=== PATIENT | female | born 1950 | race Caucasian/White ===

== ENCOUNTER 2022-06-07 08:31 | Emergency (ER) | payer MEDICARE, SELFPAY ==
[2022-06-07 08:32] VITALS: BP 172/102; PULSE 69; RESP 16; TEMP 36.6; O2SAT 97; BMI 21.2
--- NOTE | 2022-06-07 08:52 | EDS_ITS ---
HPI HPI - GI History of Present Illness Chief Complaint: Abd Pain Informant: patient and family Abdominal Pain/Flank Pain Onset: Weeks Context: Gradual Onset Timing: Intermittent Quality: Aching Location: Diffuse Current Severity: Mild Maximum Severity: Severe Worsened by: Food (Usually a while after eating, may be hour or 2, when it gets to the lower intestine) Relieved by: Antacids (sometimes by Mylanta) Nausea/Vomiting/Emesis GI Symptom: Positive for Nausea; Negative for Vomiting Diarrhea/Melena/Hematochezia GI Symptom: Negative for Diarrhea, Melena or Hematochezia Associated Symptoms Associated Symptoms: Negative for Dysuria, Frequency, Hematuria or Urgency Narrative Narrative: Patient presenting for weeks of intermittent abdominal discomfort that mainly occurs after meals. She is drinking fluids without difficulty. She has been se en at [facility] for this twice in the past 2 weeks, the initial time she had a CT of her abdomen/pelvis that showed a dilated right renal collecting system and ureter without any evidence for obstruction and nothing else acute, and the second time she had a CT of her brain without any acute abnormality. I do not have access to the other testing that she had FNA. She was referred to GI to follow-up with and no other specialists. She had a scope scheduled for [facility] however the weather was so bad that it was canceled and has not yet been rescheduled. She is still feeling poorly. She is taking no other daily medications ever prescribed in those visits, just taking some Mylanta every now and then which does help some, and although the pain is not too bad right now, she states I am just so sick and states instead of the other hospital now she wanted to try a new hospital so they present here. Family states she has a lot of anxiety. She has had no vomiting. No bright red blood per rectum or melena. Remote appendectomy no other abdominal surgeries. She states since the ER visit she had the uterus checked out and it is okay. PFSH PFSH Medical History no medical history no medical history Home Medications dicyclomine 10 mg capsule 20 mg PO Q6H PRN PRN abdominal discomfort #30 CAPSULES 06/07/22 [Rx Last Taken Unknown] ondansetron 4 mg disintegrating tablet 8 mg PO Q8H PRN PRN Nausea #20 tabs 06/07/22 [Rx Last Taken Unknown] pantoprazole 40 mg tablet,delayed release 40 mg PO DAILY #30 tabs 06/07/22 [Rx Last Taken Unknown] temazepam 15 mg capsule (Restoril) 15 mg PO QHS PRN sleep #5 caps 06/07/22 [Rx Last Taken Unknown] Allergy/AdvReac Type Severity Reaction Status Date / Time No Known Allergies Allergy Verified 06/07/22 08:33 Surgical History (Updated 06/07/22 @ 08:[address] Tian Zhu MD) Appendicitis Social History (Updated 06/07/22 @ 08:[address] Tian Zhu MD) Smoking Status: Unknown if ever smoked alcohol intake: never ROS ROS ED Constitutional Constitutional ED: Denies chills or fever(s) Eyes Eyes: Denies change in vision or diplopia ENT ENT ED: Denies rhinorrhea or sore throat Cardiovascular Cardiovascular: Denies chest pain or palpitations Respiratory/Chest Respiratory/Chest: Denies cough or dyspnea Gastrointestinal Gastrointestinal: Reports abdominal pain and nausea; Denies diarrhea or vomiting Genitourinary Genitourinary ED: Denies dysuria or hematuria Musculoskeletal Musculoskeletal: Denies back pain or neck pain Integumentary Denies abscess or rash Neurologic Neurologic: Denies headache(s), paresthesias or weakness Psychiatric Psychiatric: Denies anxiety or suicidal thoughts EXAM Physical Exam Const Vital Signs: 06/07/22 08:32 Temperature 97.8 F Temperature Source Temporal Pulse Rate 69 Respiratory Rate 16 Blood Pressure 172/102 H Blood Pressure Mean 125 Pulse Ox 97 Oxygen Delivery Method Room Air Positive well nourished and well developed General Appearance ED: well developed and NAD HEENT Reports moist mucous membranes normocephalic and atraumatic Eyes PERRL and EOMs intact bilaterally Neck full ROM and supple Resp normal respiratory effort and clear to auscultation bilaterally Cardio regular rate, regular rhythm and no murmurs GI non-distended GI Narrative: Mild epigastric tenderness, otherwise benign abdomen. No pulsatile mass. Auscultation: normoactive bowel sounds Palpation: soft Back/Spine no CVA tenderness General Back: other FROM Extremity normal to inspection General Extremety ED: Negative for edema, pulses abnormal or tenderness General Extremity: Negative for edema or pulses abnormal Neuro oriented x3, CN's II-XII intact bilaterally and no sensory deficits noted Sensorium / Orientation: awake and alert Motor Exam: strength 5/5 throughout Skin no rashes or lesions noted and no wounds MDM MDM MDM Narrative Medical decision making narrative: Labs are all normal except for very slightly low potassium, she is taking oral fluids/foods I do not think we necessarily need to focus on replacing that right now. While waiting for these labs she was given oral dicyclomine and Reglan. She did have improvement of her symptoms. However, she and the family are concerned that she is extremely anxious about all of this, and having trouble sleeping as a result, and she is asking for a sleeping pill. I will prescribe her a PPI, Zofran, dicyclomine, and Restoril to try for a few nights. They are comfortable with that plan and understand that follow-up with GI as previously scheduled is advised. Lab Data Attestation: I reviewed the patient's lab results. Labs: Laboratory Results - last 24 hr 06/07/22 06/07/22 06/07/22 09:20 09:20 09:50 WBC 6.6 RBC 4.89 Hgb 13.5 Hct 38.6 MCV 78.9 L MCH 27.6 MCHC 35.0 RDW Std Deviation 37.1 RDW Coeff of Susan 13.0 Plt Count 305 MPV 8.8 Immature Gran % (Auto) 0.200 Neut % (Auto) 54.1 Lymph % (Auto) 30.9 [place] % (Auto) 12.5 H Eos % (Auto) 1.2 Baso % (Auto) 1.1 H Absolute Neuts (auto) 3.6 Absolute Lymphs (auto) 2.05 Nucleated RBC % 0 Sodium 130 L Potassium 3.4 L Chloride 95 L Carbon Dioxide 28.0 Anion Gap 7 BUN 10 Creatinine 0.73 Estim Creat Clear Calc 42.68 Est GFR (MDRD) Af Amer 102 Est GFR (MDRD) Non-Af 84 BUN/Creatinine Ratio 13.8 Glucose 116 H Calcium 9.0 Total Bilirubin 0.40 AST 12 L ALT 28 Alkaline Phosphatase 58 Total Protein 7.1 Albumin 3.8 Globulin 3.3 Albumin/Globulin Ratio 1.2 Lipase 138 Urine Color Straw Urine Clarity Clear Urine pH 8.0 Ur Specific [place] 1.010 Urine Protein Negative Urine Glucose (UA) Normal Urine Ketones Negative Urine Occult Blood Negative Urine Nitrite Negative Urine Bilirubin Negative Urine Urobilinogen Normal Ur Leukocyte Esterase Negative Urine RBC 0 SEEN Urine WBC 0 SEEN Ur Squamous Epith Cells 0 SEEN Urine Bacteria 0 SEEN Urine Mucus 0 SEEN Discharge Plan Triage Chief Complaint: Abd Pain ED Provider: Tian Zhu Dx/Rx/DC Orders Clinical Impression: Diffuse abdominal pain, Anxiety, Insomnia Instructions: Abdominal Pain, Anxiety Disorders Tx Prescriptions: New pantoprazole 40 mg tablet,delayed release (DR/EC) 40 mg PO DAILY Qty: 30 0RF temazepam [Restoril] 15 mg capsule 15 mg PO QHS PRN (Reason: sleep) Qty: 5 0RF dicyclomine 10 MG capsule 20 mg PO Q6H PRN PRN (Reason: abdominal discomfort) Qty: 30 0RF ondansetron [ondansetron] 4 MG tablet 8 mg PO Q8H PRN PRN (Reason: Nausea) Qty: 20 0RF Primary Care Provider: Anne Marie Mejía NP Referrals: Alvaro Chen MD [Non-Staff] - As soon as possible NOT,DEFINED [Non-Staff] - Disposition Disposition: Home, Self Care
[2022-06-07 09:26] LABS: Absolute Lymphocyte Count 2.05 X10^3/uL (0.83-4.51); Absolute Neutrophil Count 3.6 X10^3/uL (2.0-7.7); Basophil# 0.07 X10^3/uL; Basophil% 1.1 % (0-1); Eosinophil# 0.08 X10^3/uL; Eosinophils% 1.2 % (0-5); Hematocrit 38.6 % (37-47); Hemoglobin 13.5 g/dL (12.0-15.0); Lymphocyte # 2.05 X10^3/ul (0.83-4.51); Lymphocyte % 30.9 % (19-41); Mean Corpuscular Hgb 27.6 pg (27.0-32.0); Mean Corpuscular Volume 78.9 fL (81-99); Mean Platelet Vol. 8.8 fl (6.2-12.0); Monocyte# 0.83 X10^3/uL; Monocyte% 12.5 % (0-10); NRBC Flagged by Analyzer 0 % (0-5); Neutrophil % 54.1 % (47-70); Platelet Count 305 K/mm3 (150-450); RBC Distribution Width SD 37.1 fl (35.1-43.9); Red Blood Count 4.89 M/mm3 (4.2-5.4); White Blood Count 6.6 K/mm3 (4.4-11.0)
[2022-06-07 09:42] LABS: ALB/GLOB Ratio 1.2 RATIO (0.9-2.4); AST(SGOT) 12 U/L (15-37); Alanine Aminotransfer ALT/SGPT 28 U/L (13-56); Albumin, Serum 3.8 g/dL (3.2-5.0); Alkaline Phosphatase 58 U/L (45-117); Anion Gap 7 (5-15); BUN 10 mg/dL (7-18); BUN/Creat Ratio 13.8 RATIO (10-20); Chloride 95 mmol/L (98-107); Creatinine, Serum 0.73 mg/dL (0.55-1.02); EST Glomerular Filtration Rate 84 mL/min (>60); Est Glom Filt Rate - Afr Amer 102 mL/min (>60); Estimated Creatinine Clearance 42.68 ml/min; Globulin 3.3 g/dL (2.2-4.2); Glucose 116 mg/dL (74-106); Lipase 138 U/L (73-393); Potassium 3.4 mmol/L (3.5-5.1); Protein, Total 7.1 g/dL (6.4-8.2); Sodium Level 130 mmol/L (136-145)
[2022-06-07] MEDS: Metoclopramide 10 MG Tablet PO (09:42)
[2022-06-07] MEDS: Pantoprazole Sodium 40 MG Tablet PO (09:42)
[2022-06-07] MEDS: Dicyclomine 10 MG Capsule 20 MG PO (09:42)
[2022-06-07 09:57] LABS: Bacteria 0 SEEN /hpf (None Seen); Mucous, Urine 0 SEEN /hpf (<or=2+); Red Blood Cells-Urine 0 SEEN /hpf (0-5); Squamous Epithelial Cells - UA 0 SEEN /hpf (5-10); White Blood Cells 0 SEEN /hpf (0-5)
[2022-06-07 09:59] LABS: Color, Urine Straw (Yellow); Glucose, Dipstick Normal (Normal); Ketone-Dipstick Negative (Negative); Leukocyte Esterase-Dipstick Negative /ul (Negative); Nitrite-Dipstick Negative (Negative); Occult Blood-Urine Negative /ul (Negative); Protein-Dipstick Negative (Negative); Urine Bilirubin Dipstick Negative (Negative); Urine Clarity Clear (Clear); Urine Urobilinogen Normal (Normal)
[2022-06-07 10:32] VITALS: RESP 14
[2022-06-07 11:10] VITALS: RESP 14
== END 2022-06-07 11:28 | disposition home or self-care (01) ==
PROVIDERS: Emergency Provider Emergency Medicine; PCP Nurse Practitioner Primary Care; Visit Provider Emergency Medicine
DX: R10.84 Generalized abdominal pain (principal); F41.9 Anxiety disorder, unspecified; G47.00 Insomnia, unspecified
CPT/HCPCS: 80053; 81001; 83690; 85025; 99284; A4216